=== PATIENT | female | born 2000 | race Caucasian/White ===

== ENCOUNTER 2025-03-04 17:37 | Emergency (ER) | payer MEDICAID ==
[~2025-03-04] VITALS: Ht 157.5 cm; Wt 56.7 kg
[2025-03-04] MEDS ORDERED: ONDANSETRON HCL/PF 4 MG/2 ML VIAL ONE (18:25)
[2025-03-04] MEDS: IV NS 0.9% 1,000 ML BAG IV ONE (18:28)
[2025-03-04] MEDS: ONDANSETRON HCL/PF 4 MG/2 ML VIAL IVP ONE (18:29)
[2025-03-04 19:31] VITALS: BP 128/76; TEMP 98.1; O2SAT 99
== END 2025-03-04 19:31 | disposition home or self-care (01) ==
LOC: ER 18:17
DX: F19.10 Other psychoactive substance abuse, uncomplicated (principal); R42 Dizziness and giddiness; R11.0 Nausea
CPT/HCPCS: 99283; 96374; 96361; J2405